=== PATIENT | male | born 1965 | race Caucasian/White ===

== ENCOUNTER 2017-05-18 18:40 | Emergency (ER) | payer BC, OTHER ==
[~2017-05-18] VITALS: Ht 175.3 cm; Wt 88.7 kg
[~2017-05-18 18:40] MED LIST: DPKSR/500 PO; LISI-461 PO
[2017-05-18 18:43] VITALS: TEMP 36.7; Ht 175.3 cm; Wt 88.7 kg
[2017-05-18] MEDS ORDERED: SODIUM CHLORIDE 0.9% 1000ML 1,000 ML IV STA (19:16)
[2017-05-18] MEDS ORDERED: RANITIDINE HCL 50 MG/100 ML D5W IV STA (19:16)
--- NOTE | 2017-05-18 19:23 | EMERGENCY ROOM VISIT NOTE ---
ED Visit Note First contact with patient: 18:54 CHIEF COMPLAINT: Allergic reaction HISTORY OF PRESENT ILLNESS: This 51-year-old male patient presents to the emergency department by personal vehicle after they developed sudden onset of hives and itching shortly after being stung by a yellow jacket. Patient states he was stung on the back of the head around 3pm today, and about 10 minutes later, he began to feel tingling in his hands and feet, tingling lips, nausea and stomach pain, and itching hives all over his chest and back. He reports being stung by several yellow jackets earlier this summer for the first time, with only localized reaction. The patient does not have swelling of the face and lips, and does not have a sensation of swelling in the throat. The patient has not had shortness of breath. Has not had previous reactions and like this before. The patient states he took 50mg of Benadryl at 6pm, and his symptoms have greatly improved. There has been no change in the patient's soaps, detergents, foods, medications, or other environmental factors. REVIEW OF SYSTEMS: A review of systems was performed with positives and pertinent negatives listed in the history of present illness. All other systems were reviewed and are negative. ALLERGIES: Reviewed in chart MEDICATIONS: Reviewed with patient PMH: Hypertension, seizure disorder SOCIAL HISTORY: Lives at home with his . Current every day smoker. PHYSICAL EXAM:VITALS: Vitals are noted on the nurse's note and reviewed by myself. Vital signs stable. GENERAL: Pleasant and cooperative, in no acute distress, non-diaphoretic, well- developed well-nourished. THROAT: No pharyngeal edema or injection, no exudates or tonsillar hypertrophy. Airway patent. LUNGS: Clear to auscultation and breath sounds equal, no wheezes, rales, or rhonchi. EYES: PERRLA, EOMI, no discharge or injection. NEUROLOGICAL: Alert and oriented to person, place, and time. Normal sensation to light and sharp touch. HEART: Regular rate without murmurs, ectopy, gallops, or rubs. SKIN: Few urticarial lesions noted on the chest and back. The lips are no swollen. There is no periorbital swelling. EMERGENCY DEPARTMENT COURSE: I examined the patient. No history or exam findings concerning for continued developing allergic reaction or anaphylaxis. The patient was given IV fluid bolus and IV ranitidine 50 mg. He felt much improved and reported full resolution of his symptoms. Tachycardia resolved. Patient was discharged home in stable condition and ambulatory. Problem List Medical Problems: (1) HTN (hypertension) Status: Chronic (2) No significant past surgical history Status: Chronic (3) Stomach ulcer Status: Chronic Current/Historical Medications Scheduled Divalproex Sodium (Depakote Etended-Release), 1,000 MG PO BID Lisinopril (Zestril), 10 MG PO DAILY Potassium (Potassium), 99 MG PO 3XWK Allergies Coded Allergies: POLLEN (Verified Allergy, Intermediate, EYES SWELL, 07/10/13) Penicillins (Verified Allergy, Unknown, UNKNOWN,TESTED CHILD, 05/18/17) Vital Signs Date Time Temp Pulse Resp B/P (MAP) Pulse Ox O2 Delivery O2 Flow Rate FiO2 05/18/17 21:00 78 20 126/74 98 05/18/17 20:25 71 20 127/85 97 Room Air 05/18/17 18:46 97 Room Air 05/18/17 18:43 36.7 110 18 120/77 97 Room Air Afebrile, normotensive, tachycardic, respiratory rate within normal limits, normal pulse ox on room air. Medications Administered Medications (Trade) Dose Ordered Sig/Cordelia Route Start Time Stop Time Status Last Admin Dose Admin Sodium Chloride 1,000 ml @ 999 mls/hr Q1H1M STAT IV 05/18/17 19:16 05/18/17 20:16 DC 05/18/17 19:38 999 MLS/HR Ranitidine HCl (zANTac IV) 50 mg NOW STAT IV 05/18/17 19:16 05/18/17 19:32 DC 05/18/17 19:38 50 MG Departure Information Impression Primary Impression: Allergic reaction Dispostion Home / Self-Care Condition GOOD Referrals No Doctor, Assigned (PCP) Patient Instructions ED Bite Sting Insect Gen Allergic React, My Glycode Additional Instructions You may continue to take Benadryl 50 mg every 6 hrs until your symptoms are fully resolved. Stay cool - no hot showers. Follow-up with your family doctor if symptoms persist. Please return to the emergency department for any return or worsening of her symptoms, especially for any shortness of breath, wheezing, face or tongue swelling, throat tightness or swelling, difficulty swallowing, rapidly spreading rash, or any other concerns. Problem Qualifiers Primary Impression: Allergic reaction Encounter type: initial encounter Qualified Codes: T78.40XA - Allergy, unspecified, initial encounter
[2017-05-18] MEDS ORDERED: RANITIDINE HCL 50 MG/100 ML D5W ONE (19:31)
[2017-05-18] MEDS ORDERED: POTA99TA PO (19:57)
[2017-05-18 21:00] VITALS: BP 126/74; PULSE 78; O2SAT 98
== END 2017-05-18 21:00 | disposition home or self-care (01) ==
LOC: C.EDB 18:42 → C.EDD 21:00
DX: T78.40XA Allergy, unspecified, initial encounter (principal); X58.XXXA Exposure to other specified factors, initial encounter; I10 Essential (primary) hypertension; G40.909 Epilepsy, unspecified, not intractable, without status epilepticus; Z79.899 Other long term (current) drug therapy